=== PATIENT | female | born 1990 | race Caucasian/White ===

== ENCOUNTER → 2017-11-29 | Outpatient (CLI) | payer MEDICAID, OTHER | LOC: M RAD 13:00 | DX: D23.5 Other benign neoplasm of skin of trunk (principal) | CPT/HCPCS: 76882 ==

== ENCOUNTER → 2018-01-12 | Outpatient (REF) | payer MEDICAID, OTHER ==
[2018-01-12 20:36] LABS: CHLAMYDIA DNA AMPLIFICATION NEGATIVE (NEGATIVE); GC DNA AMPLIFICATION NEGATIVE (NEGATIVE)
== END ==
LOC: M LAB REF 17:20
DX: Z11.3 Encounter for screening for infections with a predominantly sexual mode of transmission (principal)
CPT/HCPCS: 87591

== ENCOUNTER → 2018-07-23 | Outpatient (CLI) | payer BC, OTHER ==
[~2018-07-23] MED LIST: /ESCI10TA PO; FLAG250T PO; FLAG500T PO; ZOLO100T PO; [UNRECOGNIZED DRUG - OTHER]
--- NOTE | 2018-07-23 18:57 | REP ---
LUMBAR SPINE, FIVE VIEWS: HISTORY: Back pain. There is no acute fracture or subluxation. The L4-5 intervertebral disc is decreased in height consistent with disc degeneration. An osteophyte is present on L4. The facet joints are normal in appearance. IMPRESSION:Degenerative change as described above. Electronically Signed by Randolph Patel MD 07/23/2018 06:58 P
== END ==
LOC: M RAD 17:20
PROVIDERS: ATTEND Physician Assistant Medical
DX: M51.36 Other intervertebral disc degeneration, lumbar region (principal); M25.78 Osteophyte, vertebrae; M54.5 Low back pain

== ENCOUNTER 2018-10-07 18:36 | Emergency (ER) | payer BC, OTHER ==
[~2018-10-07] VITALS: Ht 170.2 cm; Wt 74.3 kg
[~2018-10-07 18:36] MED LIST changes: -/ESCI10TA PO; +LEXA1TAB PO
[2018-10-07] MEDS ORDERED: MELO7.5T35 (18:42)
[2018-10-07] MEDS ORDERED: TIZA4TAB4 (18:42)
[2018-10-07] MEDS ORDERED: NS 500 ML IV ONE (19:45)
[2018-10-07] MEDS ORDERED: KETOROLAC 30 MG/ML VIAL (J1885) IV ONE (19:45)
[2018-10-07 20:34] LABS: BASO # 0.1 10^3/uL (0.0-0.2); BASO % 0.4 % (0.0-1.0); EOS # 0.2 10^3/uL (0.0-0.50); EOS % 1.5 % (0.0-3.0); HEMATOCRIT 42.2 % (36.0-47.0); LYMPH # 2.6 10^3/uL (1.5-6.5); LYMPH % 19.6 % (24.0-44.0); MEAN CORPUSCULAR HEMOGLOBIN 28.9 pg (27.0-33.0); MEAN CORPUSCULAR HGB CONC 33.2 g/dl (32.0-36.5); MEAN CORPUSCULAR VOLUME 87.2 fl (80.0-96.0); MONO # 1.1 10^3/uL (0.0-0.8); MONO % 8.1 % (0.0-5.0); NEUTROPHILS # 9.4 10^3/uL (1.8-7.7); NEUTROPHILS % 70.2 % (36.0-66.0); PLATELET COUNT, AUTOMATED 241 10^3/uL (150-450); RED BLOOD COUNT 4.84 10^6/uL (4.00-5.40); WHITE BLOOD COUNT 13.4 10^3/uL (4.0-10.0)
[2018-10-07] MEDS: GASTROGRAFIN SOLUTION 30ML PO SCH ×2 (20:39→21:12)
[2018-10-07 21:11] LABS: ALBUMIN 4.1 GM/DL (3.2-5.2); ALT/SGPT 14 U/L (12-78); AMYLASE 37 U/L (25-115); BILIRUBIN,TOTAL 0.3 MG/DL (0.2-1.0); BLOOD UREA NITROGEN 11 MG/DL (7-18); C REACTIVE PROTEIN QUANTITATIV 2.92 MG/DL (0.00-0.30); CARBON DIOXIDE LEVEL 24 MEQ/L (21-32); CHLORIDE LEVEL 107 MEQ/L (98-107); CREATININE FOR GFR 0.78 MG/DL (0.55-1.30); GLOMERULAR FILTRATION RATE > 60.0 (>60); GLUCOSE, FASTING 81 MG/DL (70-100); LIPASE 78 U/L (73-393); POTASSIUM SERUM 3.8 MEQ/L (3.5-5.1); SODIUM LEVEL 138 MEQ/L (136-145); TOTAL PROTEIN 7.4 GM/DL (6.4-8.2)
[2018-10-07] MEDS ORDERED: ISOVUE-370 76% 100ML VIAL (Q9967) As Ordered ONE (21:49)
--- NOTE | 2018-10-07 22:51 | REPVR ---
EXAM: CT Abdomen and Pelvis With Contrast EXAM DATE/TIME: 10/07/2018 9:51 PM CLINICAL HISTORY: 27 years old, female; Abdominal pain; Additional info: Luq, llq pain TECHNIQUE: Imaging protocol: Axial computed tomography images of the abdomen and pelvis with intravenous contrast. Coronal and sagittal reformatted images were created and reviewed. Radiation optimization: All CT scans at this facility use at least one of these dose optimization techniques: automated exposure control; mA and/or kV adjustment per patient size (includes targeted exams where dose is matched to clinical indication); or iterative reconstruction. Contrast material: ISO 370; Contrast volume: 100 ml; Contrast route: IV; COMPARISON: CT ABD PELVIS WITH CONTRAST 12/31/2014 2:55 PM FINDINGS: Lungs: No suspicious mass or airspace process in the visualized lung bases. ABDOMEN: Liver: Liver appears normal with no focal abnormality. Gallbladder and bile ducts: Gallbladder is present and shows no evidence of gallstone. Pancreas: Pancreas appears normal. No focal mass or peripancreatic inflammation. Spleen: Spleen appears homogeneous without focal mass. Adrenals: Adrenal glands are normal in appearance. Kidneys and ureters: Kidneys appear normal, with no stone, solid mass or hydronephrosis. Stomach and bowel: No evidence of small bowel obstruction. Mid-descending colon wall thickening, adjacent fat stranding and regional diverticula suggests acute diverticulitis without perforation or abscess formation at this point. Appendix: Normal caliber appendix is identified, with no adjacent inflammation. PELVIS: Bladder: Bladder appears normal. ABDOMEN and PELVIS: Intraperitoneal space: No pneumoperitoneum. Trace free fluid is present in the pelvis. No abnormal pelvic mass. Bones/joints: Bony structures show no acute fracture or destructive process. Vasculature: Main portal and splenic veins enhance normally. No aortic aneurysm. Lymph nodes: No enlarged lymph nodes. IMPRESSION: Acute diverticulitis involving the mid descending colon. No obstruction, perforation or abscess. Trace volume of pelvic free fluid may be associated. Electronically signed by: Roque Concepcion On 10/07/2018 22:51:03 PM
[2018-10-07] MEDS ORDERED: metroNIDAZOLE (FLAGYL) 500 MG TAB PO ONE (23:00)
[2018-10-07] MEDS ORDERED: CIPROFLOXACIN 500 MG TAB PO ONE (23:00)
[2018-10-07] MEDS ORDERED: MORPHINE 4 MG/ML 1ML VIAL/SYRINGE (J2270) IV ONE (23:00)
[2018-10-07 23:35] VITALS: BP 127/70
[2018-10-07] MEDS ORDERED: TYLETAB14 PO (23:42)
[2018-10-07] MEDS ORDERED: FLAG500T PO (23:42)
[2018-10-07] MEDS ORDERED: REGL10TA6 PO (23:42)
[2018-10-07] MEDS ORDERED: CIPR-249 PO (23:42)
== END 2018-10-08 00:28 | disposition home or self-care (01) ==
LOC: M ED 18:36
DX: K57.32 Diverticulitis of large intestine without perforation or abscess without bleeding (principal); F33.9 Major depressive disorder, recurrent, unspecified; F41.9 Anxiety disorder, unspecified; Z79.899 Other long term (current) drug therapy; F17.210 Nicotine dependence, cigarettes, uncomplicated
CPT/HCPCS: 74177; 80053; 81001; 82150; 83690; 84702; 85025; 86140; 96361; 96374; 96375; 99284; J1885; J2270; Q9963; Q9967

== ENCOUNTER 2018-12-10 17:03 | Emergency (ER) | payer BC, OTHER, SELFPAY ==
[~2018-12-10] VITALS: Ht 170.2 cm; Wt 72.0 kg
[~2018-12-10 17:03] MED LIST changes: +CIPR-249 PO; +MELO7.5T35; +REGL10TA6 PO; +TIZA4TAB4; +TYLETAB14 PO
[2018-12-10] MEDS ORDERED: AZITHROMYCIN 250 MG TAB PO ONE (20:00)
[2018-12-10 20:40] VITALS: BP 137/86
[2018-12-10 22:40] LABS: CHLAMYDIA DNA AMPLIFICATION NEGATIVE (NEGATIVE); GC DNA AMPLIFICATION NEGATIVE (NEGATIVE)
== END 2018-12-10 21:44 | disposition home or self-care (01) ==
LOC: M ED 17:03
DX: Z20.2 Contact with and (suspected) exposure to infections with a predominantly sexual mode of transmission (principal); Z72.0 Tobacco use; Z79.899 Other long term (current) drug therapy

== ENCOUNTER 2019-01-05 04:45 | Emergency (ER) | payer BC, SELFPAY ==
[~2019-01-05] VITALS: Ht 170.2 cm; Wt 69.1 kg
[2019-01-05 07:11] LABS: BASO # 0.1 10^3/uL (0.0-0.2); BASO % 0.6 % (0.0-1.0); EOS # 0.2 10^3/uL (0.0-0.50); EOS % 2.4 % (0.0-3.0); HEMATOCRIT 40.3 % (36.0-47.0); HEMOGLOBIN 13.6 g/dl (12.0-15.5); LYMPH # 3.2 10^3/uL (1.5-6.5); LYMPH % 36.7 % (24.0-44.0); MEAN CORPUSCULAR HEMOGLOBIN 28.9 pg (27.0-33.0); MEAN CORPUSCULAR HGB CONC 33.7 g/dl (32.0-36.5); MEAN CORPUSCULAR VOLUME 85.7 fl (80.0-96.0); MONO # 0.4 10^3/uL (0.0-0.8); MONO % 4.6 % (0.0-5.0); NEUTROPHILS # 4.8 10^3/uL (1.8-7.7); NEUTROPHILS % 55.6 % (36.0-66.0); PLATELET COUNT, AUTOMATED 263 10^3/uL (150-450); WHITE BLOOD COUNT 8.7 10^3/uL (4.0-10.0)
[2019-01-05] MEDS ORDERED: NS 1,000 ML IV ONE (07:15)
[2019-01-05 07:23] LABS: BLOOD UREA NITROGEN 8 MG/DL (7-18); CALCIUM LEVEL 8.6 MG/DL (8.5-10.1); CARBON DIOXIDE LEVEL 21 MEQ/L (21-32); CHLORIDE LEVEL 111 MEQ/L (98-107); CREATININE FOR GFR 0.71 MG/DL (0.55-1.30); ETHYL ALCOHOL (ETHANOL) 0.231 % (0.000-0.010); GLOMERULAR FILTRATION RATE > 60.0 (>60); GLUCOSE, FASTING 95 MG/DL (70-100); HCG, SERUM QUANTITATIVE < 1.0 MIU/ML; POTASSIUM SERUM 3.8 MEQ/L (3.5-5.1); SODIUM LEVEL 144 MEQ/L (136-145)
[2019-01-05 07:43] LABS: APPEARANCE, URINE CLEAR (CLEAR); BACTERIA, URINE AUTO NEGATIVE (NEGATIVE); BILIRUBIN, URINE AUTO NEGATIVE (NEGATIVE); BLOOD, URINE BLOOD NEGATIVE (NEGATIVE); COLOR, URINE STRAW (YELLOW); GLUCOSE, URINE (UA) AUTO NEGATIVE (NEGATIVE); KETONE, URINE AUTO NEGATIVE (NEGATIVE); LEUKOCYTE ESTERASE, URINE AUTO NEGATIVE (NEGATIVE); NITRITE, URINE AUTO NEGATIVE (NEGATIVE); PROTEIN, URINE AUTO NEGATIVE (NEGATIVE); RBC, URINE AUTO 1 /HPF (0-3); SPECIFIC GRAVITY URINE AUTO 1.004 (1.002-1.035); SQUAMOUS EPITHELIAL CELL UR AU 1 /HPF (0-6); UROBILINOGEN, URINE AUTO 0.2 mg/dL (0.0-2.0); WBC, URINE AUTO 0 /HPF (0-3)
[2019-01-05 08:09] LABS: AMPHETAMINES LEVEL URINE NEGATIVE (NEGATIVE); BARBITURATES URINE NEGATIVE (NEGATIVE); BENZODIAZEPINES URINE NEGATIVE (NEGATIVE); CANNABINOIDS URINE NEGATIVE (NEGATIVE); COCAINE METABOLITE URINE NEGATIVE (NEGATIVE); METHADONE URINE NEGATIVE (NEGATIVE); OPIATES URINE NEGATIVE (NEGATIVE); PHENCYCLIDINE URINE NEGATIVE (NEGATIVE)
--- NOTE | 2019-01-05 08:09 | REPVR ---
EXAM: US Pelvis Complete, Transabdominal EXAM DATE/TIME: 01/05/2019 7:44 AM CLINICAL HISTORY: 28 years old, female; Pelvic pain; Additional info: Pelvic pain, dyspareunia TECHNIQUE: Imaging protocol: Real-time transabdominal pelvic ultrasound with image documentation. Complete exam. COMPARISON: US PELVIC NON-OB COMPLETE 12/16/2014 1:06 PM FINDINGS: Uterus/cervix: The uterus measures 8.4 x 5.0 x 3.7 cm. No focal uterine mass is seen. The endometrium is normal in thickness measuring 5-6 mm. Right adnexa: The right ovary measures 3.4 x 3.1 x 2.8 cm with flow seen to the right ovary. Left adnexa: The left ovary measures 3.4 x 3.4 x 2.6 cm containing a 1.8 x 1.9 x 1.6 cm cyst. Arterial blood flow seen to the left ovary. Free fluid: There is no free pelvic fluid. Bladder: Normal. IMPRESSION: 1.8 x 1.9 x 1.6 cm left ovarian follicular cyst. No sonographic evidence of torsion. Unremarkable ultrasound of the right ovary and uterus. Electronically signed by: See Kelly On 01/05/2019 08:08:49 AM
[2019-01-05 09:29] LABS: CHLAMYDIA DNA AMPLIFICATION NEGATIVE (NEGATIVE); GC DNA AMPLIFICATION NEGATIVE (NEGATIVE)
[2019-01-05 09:33] VITALS: BP 118/56
[2019-01-07 11:58] LABS: HIV 1&2 SCREEN CENTAUR NEGATIVE (NEGATIVE)
== END 2019-01-05 09:35 | disposition home or self-care (01) ==
LOC: M ED 04:45
DX: N83.02 Follicular cyst of left ovary (principal); N94.10 Unspecified dyspareunia; F10.120 Alcohol abuse with intoxication, uncomplicated; F17.210 Nicotine dependence, cigarettes, uncomplicated
CPT/HCPCS: 76830; 76856; 80048; 80307; 81001; 84702; 85025; 86780; 87389; 87661; 93041; 93976; 96360; 99285; G0480

== ENCOUNTER 2019-01-10 03:26 | Inpatient (IN) | payer BC ==
[~2019-01-10] VITALS: Ht 170.2 cm; Wt 70.5 kg
[2019-01-10] MEDS ORDERED: NS 1,000 ML IV SCH (03:55)
[2019-01-10] MEDS ORDERED: MIDAZOLAM INJ 2 MG/2 ML VIAL (J2250) As Ordered ONE (04:14)
[2019-01-10] MEDS ORDERED: MIDAZOLAM INJ 2 MG/2 ML VIAL (J2250) IV ONE (04:15)
[2019-01-10 04:16] LABS: HEMATOCRIT 39.4 % (36.0-47.0); HEMOGLOBIN 13.2 g/dl (12.0-15.5); MEAN CORPUSCULAR HEMOGLOBIN 29.1 pg (27.0-33.0); MEAN CORPUSCULAR HGB CONC 33.5 g/dl (32.0-36.5); MEAN CORPUSCULAR VOLUME 86.8 fl (80.0-96.0); PLATELET COUNT, AUTOMATED 268 10^3/uL (150-450); RED BLOOD COUNT 4.54 10^6/uL (4.00-5.40); WHITE BLOOD COUNT 9.1 10^3/uL (4.0-10.0)
[2019-01-10 04:40] LABS: HCG, SERUM QUALITATIVE NEGATIVE (NEGATIVE)
[2019-01-10 04:50] LABS: ACETAMINOPHEN LEVEL < 2.0 UG/ML (10.0-30.0); ALBUMIN 3.8 GM/DL (3.2-5.2); ALT/SGPT 20 U/L (12-78); BILIRUBIN,DIRECT < 0.1 MG/DL (0.0-0.2); BILIRUBIN,TOTAL 0.1 MG/DL (0.2-1.0); BLOOD UREA NITROGEN 11 MG/DL (7-18); CALCIUM LEVEL 8.4 MG/DL (8.5-10.1); CARBON DIOXIDE LEVEL 21 MEQ/L (21-32); CHLORIDE LEVEL 112 MEQ/L (98-107); CREATININE FOR GFR 0.66 MG/DL (0.55-1.30); ETHYL ALCOHOL (ETHANOL) 0.237 % (0.000-0.010); GLOMERULAR FILTRATION RATE > 60.0 (>60); GLUCOSE, FASTING 87 MG/DL (70-100); SALICYLATE LEVEL < 1.7 MG/DL (5.0-30.0); SODIUM LEVEL 144 MEQ/L (136-145)
[2019-01-10 05:56] LABS: AMPHETAMINES LEVEL URINE NEGATIVE (NEGATIVE); BARBITURATES URINE NEGATIVE (NEGATIVE); BENZODIAZEPINES URINE POSITIVE (NEGATIVE); CANNABINOIDS URINE NEGATIVE (NEGATIVE); COCAINE METABOLITE URINE NEGATIVE (NEGATIVE); METHADONE URINE NEGATIVE (NEGATIVE); OPIATES URINE NEGATIVE (NEGATIVE); PHENCYCLIDINE URINE NEGATIVE (NEGATIVE)
--- NOTE | 2019-01-10 07:25 | ECGEPIP ---
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
[2019-01-10] MEDS ORDERED: TIZA4TAB4 PO (10:37)
[2019-01-10] MEDS ORDERED: LORazepam 2 MG TAB PO PRN (12:45)
[2019-01-10 13:36] VITALS: BP 114/75
[2019-01-10 14:19] VITALS: BP 114/75
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
[2019-01-10] MEDS: FOLIC ACID 1 MG TAB PO SCH (17:19)
[2019-01-10] MEDS: MULTIVITAMINS/MINERALS THERAP 1 TAB PO SCH (17:19)
[2019-01-10] MEDS: THIAMINE 100 MG TAB PO SCH ×2 (17:20→21:00)
[2019-01-10 22:25] VITALS: BP 114/75
[2019-01-11 06:42] VITALS: BP 96/54
[2019-01-11 06:57] VITALS: BP 96/54
[2019-01-11] MEDS: MULTIVITAMINS/MINERALS THERAP 1 TAB PO SCH (09:00)
[2019-01-11] MEDS: THIAMINE 100 MG TAB PO SCH (09:00)
[2019-01-11] MEDS: FOLIC ACID 1 MG TAB PO SCH (09:00)
--- NOTE | 2019-01-11 10:04 | MHIPNPDOC ---
[facility] Progress Note Vital Signs Vital Signs Date Time Temp Pulse Resp B/P (MAP) Pulse Ox O2 Delivery O2 Flow Rate FiO2 01/11/19 06:57 73 96/54 01/11/19 06:42 99.3 14 01/10/19 13:36 97 01/10/19 13:08 Room Air Laboratory Data 24H Labs Laboratory Tests 2 01/10/19 13:05: Ethyl Alcohol Level 0.031H Current Medications Current Medications Medications (Trade) Dose Ordered Sig/Art Route PRN Reason Start Time Stop Time Status Last Admin Dose Admin Folic Acid (Folic Acid) 1 mg DAILY PO 01/10/19 09:00 Home Med (Med Rec Complete!) ASDIRECTED XX 01/10/19 10:45 01/10/19 10:45 DC Lorazepam (Ativan) 2 mg ASDIRECTED PRN PO SEE PROTOCOL 01/10/19 12:45 Multivitamins (Theragram-M) 1 tab DAILY PO 01/10/19 09:00 Sodium Chloride 1,000 ml @ 150 mls/hr Q6H40M IV 01/10/19 03:55 01/10/19 19:29 DC 01/10/19 03:55 Thiamine HCl (Thiamine HCl) 100 mg BID PO 01/10/19 14:00 01/12/19 21:01 Allergies Coded Allergies: No Known Allergies (Unverified , 10/07/18) EARL SNOW DO Jan 11, 2019 10:04
--- NOTE | 2019-01-11 10:49 | HPEPDOC ---
General Date of Admission Jan 10, 2019 at 12:31 Date of Service: Jan 11, 2019 Attending Physician: SAURAV FELIZ MD Chief Complaint The patient is a 28-year-old female admitted with a reason for visit of Suicidal Thought. History of Present Illness Sandy Jimenez is a 8-year-old female, primary medical history significant for alcohol abuse, admitted to inpatient psychiatric units for evaluation. Patient had taken muscle relaxers, benzodiazepine, and significant amount of alcohol. She reportedly had been found facedown in her top after drinking a large amount of alcohol. There was concern for suicidal ideation or attempt. On assessment, she denies any physical symptoms, denies headache, chest pain, shortness of breath, chills, weakness, fever. Home Medications Scheduled PRN Tizanidine HCl (Tizanidine HCl) 4 Mg Tablet, 4 MG PO DAILY PRN for MUSCLE SPASMS, (Reported) Allergies Coded Allergies: No Known Allergies (Unverified , 10/07/18) Past Medical History Medical History Alcohol abuse Polysubstance abuse-benzos Surgical History Right foot bunion removal [place] tooth removal Cervical tear repair D&C Family History Sibling: Rapid heart rate Social History Smokes half a pack of cigarettes a day, heavy alcohol intake, denies polysubstance abuse A-FIB/CHADSVASC A-FIB History Current/History of A-Fib/PAF?: No Current PO Anticoag Therapy: No Review of Systems Other systems A pertinent 10 point review of systems was completed, negative except as stated in the history of presenting illness Physical Examination Other physical findings GENERAL: NAD SKIN : Warm, dry intact HEENT: Atraumatic, normocephalic, PERRL, moist mucous membrane CARDIOVASCULAR: Regular rate and rhythm, S1S2, no JVD, no edema, distal pulses + palpable RESP: CTAB, no accessory muscle use noted ABDOMEN: BS+ non distended non tender MS: no joint deformities NEURO: Alert and oriented x 3, CN2-12 grossly intact PSYCH: flat affect. Vital Signs Vital Signs Date Time Temp Pulse Resp B/P (MAP) Pulse Ox O2 Delivery O2 Flow Rate FiO2 01/11/19 06:57 73 96/54 01/11/19 06:42 99.3 14 01/10/19 13:36 97 01/10/19 13:08 Room Air Laboratory Data Labs 24H Laboratory Tests 2 01/10/19 13:05: Ethyl Alcohol Level 0.031H Assessment/Plan Suicidal ideation Depression Polysubstance abuse (with benzodiazepines with alcohol) PLAN Patient currently has no underlying medical comorbidities requiring medical follow-up and management. Acute psychiatric issues being managed by primary team Reconsult medical team as needed Plan / VTE VTE Prophylaxis Ordered?: No VTE Exclusion Mechanical Proph: Low Risk for VTE BECKA MARADIAGA SELF RISING FLOUR MIXER Jan 11, 2019 10:48
--- NOTE | 2019-01-11 16:13 | MHDSPDOC ---
[facility] Discharge Summary Discharge Summary DATE OF ADMISSION: Jan 10, 2019 at 12:31 DATE OF DISCHARGE: 01/11/19 Date of Service: 01/11/2019 Diagnoses Unspecified depressive disorder. Highly likely to be substance-induced. Alcohol use disorder, severe. History of Present Illness The patient a 28-year-old woman presented to [facility] brought in by police after being found face-down in her bathtub after drinking a significant amount of alcohol and reportedly writing suicide notes. She had also taken some muscle relaxants and had been reportedly making suicidal statements to family. The patient was admitted to the unit and subsequently interviewed. Consultants Involved Hospitalist/PCP screening Treatment and Progress On The Unit The patient was admitted into the unit and subsequently evaluated. She declined medications as she reports she wanted to consider with her outpatient therapist. She was observed for 24 hours and demonstrated no concerning sign or symptoms and denied suicidality. Her report was that the events that had transpired prior to admission were the result of extreme intoxication and not reflective of her general outpatient functioning and had denied any psychiatric symptoms preceding the event in question. She was initially extended for 48-hour hold. However, collateral information gained from her sister who was proximal to the event clarified this situation as likely substance-induced as well as intoxication and that her sister reported she had no concerns about suicidality and that the patient could do well as an outpatient. After further discussion with the patient and interviewing, the patient was deemed ready for discharge and did not need involuntary criteria for further extension of her admission due to the lack of suicidality and the increasing likelihood of her situation being an entirely alcohol-related/mediated for her presentation. She elected against a further voluntary admission and thus was discharged in [facility] home. Discharge Assessment The patient a 28-year-old woman with a history of severe alcohol problems presents after being severely intoxicated, making various statements and writing down various suicide notes while heavily intoxicated. Collateral information and 24 hours of observation appear to confirm that the patient's account of situations as her affect rapidly returned normal after intoxication resolved. Mental Status Examination General: Well dressed with good hygiene Speech: Spontaneous and fluid Thought processes: Linear and logical MSK: Smooth and coordinated gait, no signs of tremors or involuntary orofacial movements Thought content: Future orientated Abstract reasoning, and computation: Intact Description of associations: Intact Description of abnormal or psychotic thoughts: Denies any suicidal or homicidal ideation. Denies any auditory or visual hallucinations. Does not appear to be responding to internal stimuli. Does not appear to be endorsing any bizarre or paranoid ideation. Judgment: fair Insight: fair Orientation: Alert and orientated 3 Cognition: Grossly normal Recent and remote memory: Intact Attention span and concentration: Intact Fund of knowledge: Adequate Mood: "okay" Affect: Euthymic with a full range Follow Up The social work team worked during the predischarge meeting in order to evaluate for further issues of lethality address them fully before discharge. They worked on safety planning with the patient's family members in order to ensure that the patient will have a safe and effective discharge. Discussed with patient to follow up with ER if she experienced any alcohol withdrawal symptoms such as tremors or shakiness. Time Spent The amount of time spent in the coordination of care for this patient was approximately 30 minutes. Monday Vital Signs/I&Os Vital Signs Date Time Temp Pulse Resp B/P (MAP) Pulse Ox O2 Delivery O2 Flow Rate FiO2 01/11/19 06:57 73 96/54 01/11/19 06:42 99.3 14 01/10/19 13:36 97 01/10/19 13:08 Room Air I&O- Last 24 Hours up to 6 AM 01/11/19 06:00 Intake Total 1000 ml Balance 1000 ml Medications No Active Prescriptions or Reported Meds Allergies Coded Allergies: No Known Allergies (Unverified , 10/07/18) EARL SNOW DO Jan 11, 2019 16:12
== END 2019-01-11 13:30 | disposition home or self-care (01) | DRG 775 ==
LOC: M ED 03:26 → M ED INP 12:31 → M PSY 13:30
PROVIDERS: ADMIT Psychiatry & Neurology Addiction Medicine; ATTEND Psychiatry & Neurology Addiction Medicine
DX: F10.94 Alcohol use, unspecified with alcohol-induced mood disorder (principal); R45.851 Suicidal ideations

== ENCOUNTER 2019-04-13 07:40 | Emergency (ER) | payer BC, SELFPAY ==
[~2019-04-13] VITALS: Ht 170.2 cm; Wt 67.9 kg
[2019-04-13 07:40] VITALS: BP 140/87
[~2019-04-13 07:40] MED LIST changes: +TIZA4TAB4 PO
[2019-04-13] MEDS ORDERED: IBUPROFEN 800 MG TAB PO ONE (08:15)
[2019-04-13] MEDS ORDERED: AUGMENTIN 875 MG TAB PO ONE (08:15)
[2019-04-13] MEDS ORDERED: IBUP80TA PO (08:21)
[2019-04-13] MEDS ORDERED: AUGM875T28 PO (08:21)
== END 2019-04-13 08:32 | disposition home or self-care (01) ==
LOC: M ED 07:40
DX: J02.9 Acute pharyngitis, unspecified (principal)

== ENCOUNTER 2019-04-22 23:44 | Emergency (ER) | payer BC ==
[~2019-04-22] VITALS: Ht 170.2 cm; Wt 68.2 kg
[~2019-04-22 23:44] MED LIST changes: +AUGM875T28 PO; +IBUP80TA PO
[2019-04-23] MEDS ORDERED: NS 1,000 ML IV ONE (01:15)
[2019-04-23 01:39] LABS: BASO % 0.3 % (0.0-1.0); EOS # 0.6 10^3/uL (0.0-0.5); EOS % 6.9 % (0.0-3.0); HEMOGLOBIN 13.5 g/dl (12.0-15.5); LYMPH # 2.5 10^3/uL (1.5-5.0); LYMPH % 28.2 % (24.0-44.0); MEAN CORPUSCULAR HGB CONC 32.1 g/dl (32.0-36.5); MONO # 0.5 10^3/uL (0.0-0.8); MONO % 5.1 % (0.0-5.0); NEUTROPHILS # 5.3 10^3/uL (1.5-8.5); NEUTROPHILS % 59.2 % (36.0-66.0); PLATELET COUNT, AUTOMATED 236 10^3/uL (150-450); RED BLOOD COUNT 4.83 10^6/uL (4.00-5.40)
[2019-04-23 02:08] LABS: ALBUMIN 3.6 GM/DL (3.2-5.2); ALT/SGPT 17 U/L (12-78); BILIRUBIN,DIRECT < 0.1 MG/DL (0.0-0.2); BILIRUBIN,TOTAL 0.3 MG/DL (0.2-1.0); BLOOD UREA NITROGEN 18 MG/DL (7-18); CALCIUM LEVEL 8.9 MG/DL (8.5-10.1); CARBON DIOXIDE LEVEL 32 MEQ/L (21-32); CHLORIDE LEVEL 103 MEQ/L (98-107); CREATININE FOR GFR 0.69 MG/DL (0.55-1.30); GLOMERULAR FILTRATION RATE > 60.0 (>60); GLUCOSE, FASTING 89 MG/DL (70-100); LIPASE 55 U/L (73-393); POTASSIUM SERUM 3.6 MEQ/L (3.5-5.1); SODIUM LEVEL 140 MEQ/L (136-145); TOTAL PROTEIN 7.1 GM/DL (6.4-8.2)
[2019-04-23 04:01] LABS: HCG, SERUM QUANTITATIVE 4528 MIU/ML
[2019-04-23 05:13] LABS: CHLAMYDIA DNA AMPLIFICATION POSITIVE (NEGATIVE); GC DNA AMPLIFICATION NEGATIVE (NEGATIVE)
--- NOTE | 2019-04-23 05:13 | REPVR ---
PROCEDURE INFORMATION: Exam: US Duplex Artery and Vein of the Abdominal and/or Reproductive Organs. Complete Ovaries Exam date and time: 04/23/2019 4:22 AM Clinical history: 28 years old, female; complicated by abdominal or pelvic pain; Generalized abdominal pain; First trimester; Gestational age or lmp: Lmp 03/19/19; ; Additional info: Preg abd pain eval for iup TECHNIQUE: Imaging protocol: Real-time duplex ultrasound scan of the arterial and venous flow with color Doppler flow and spectral waveform analysis with image documentation. Complete duplex exam focused on the ovaries. Duplex exam was added to evaluate for torsion and other vascular conditions. COMPARISON: No relevant prior studies available. FINDINGS: Right adnexa: The arterial and venous color Doppler flow and spectral waveforms within the right ovary are within normal limits. No right ovarian torsion. Left adnexa: The arterial and venous color Doppler flow and spectral waveforms within the left ovary are within normal limits. No left ovarian torsion. IMPRESSION: Normal ovarian arterial and venous vascular flow. No evidence for ovarian torsion. PROCEDURE INFORMATION: Exam: US First Trimester, Transabdominal and US , Transvaginal Exam date and time: 04/23/2019 4:22 AM Clinical history: 28 years old, female; complicated by abdominal or pelvic pain; Generalized abdominal pain; First trimester; Gestational age or lmp: Lmp 03/19/19; ; Additional info: Preg abd pain eval for iup TECHNIQUE: Imaging protocol: Real-time transabdominal obstetrical ultrasound of the maternal pelvis and a first trimester , less than 14 weeks 0 days, with image documentation. Transvaginal imaging was used for better evaluation of the fetus and adnexa. COMPARISON: No relevant prior studies available. FINDINGS: Last menstrual period: 03/19/2019 Beta HC,528 mIU/mL GESTATION: Gestation: No pole is identified. There is a single intrauterine gestational sac and a 2 mm in diameter yolk sac. Heart rate: No cardiac activity is visualized. Placenta: No placenta is visualized. Amniotic fluid: Amniotic and chorionic fluid are normal for gestational age. BIOMETRY: Estimated gestational age by US: 5 weeks 3 days Estimated gestational age by LMP: 5 weeks 0 days Mean sac diameter: 0.74 cm Estimated due date by US: 12/21/2019 Estimated due date by LMP: 12/24/2019 MATERNAL: Uterus: The anteverted uterus measures 8.1 cm x 4.1 cm x 6.2 cm. No myometrial mass is identified. Cervix: Unremarkable. Right adnexa: The right ovary is normal in appearance. No right ovarian cyst or right adnexal mass is noted. The right ovary measures 3.2 cm x 2.5 cm x 1.9. Left adnexa: The left ovary is normal in appearance. No left ovarian cyst or left adnexal mass is noted. The left ovary measures 3.1 cm x 2.5 cm x 2.8 cm. Intraperitoneal: No free fluid is visualized in the pelvis from images obtained. IMPRESSION: Single intrauterine gestational sac with a mean sac diameter of 0.74 cm, corresponding to a gestational age of 5 weeks 3 days and estimated due date on 12/21/2019, but no embryo is visualized. These findings may indicate a failed first trimester or normal early . A followup ultrasound is recommended after 11 days to reassess for an embryo and serial beta hCG levels are also suggested. Electronically signed by: Enoch Cisneros On 04/23/2019 05:13:11 AM
[2019-04-23] MEDS ORDERED: AZITHROMYCIN 250 MG TAB PO ONE (05:45)
[2019-04-23] MEDS ORDERED: PROM25TA12 PO (06:17)
[2019-04-23 06:35] VITALS: BP 109/58
== END 2019-04-23 06:46 | disposition home or self-care (01) ==
LOC: M ED 23:44
DX: O20.0 Threatened abortion (principal); O21.9 Vomiting of pregnancy, unspecified; A74.9 Chlamydial infection, unspecified; M46.96 Unspecified inflammatory spondylopathy, lumbar region; Z3A.08 8 weeks gestation of pregnancy; Z87.891 Personal history of nicotine dependence

== ENCOUNTER → 2019-05-30 | Outpatient (CLI) | payer BC ==
[~2019-05-30] MED LIST changes: +PROM25TA12 PO
[2019-05-30 14:16] LABS: BASO % 0.4 % (0.0-1.0); EOS # 0.3 10^3/uL (0.0-0.5); EOS % 3.9 % (0.0-3.0); HEMATOCRIT 40.6 % (36.0-47.0); HEMOGLOBIN 13.3 g/dl (12.0-15.5); LYMPH # 2.2 10^3/uL (1.5-5.0); LYMPH % 30.8 % (24.0-44.0); MEAN CORPUSCULAR HEMOGLOBIN 28.6 pg (27.0-33.0); MEAN CORPUSCULAR HGB CONC 32.8 g/dl (32.0-36.5); MEAN CORPUSCULAR VOLUME 87.3 fl (80.0-96.0); MONO # 0.4 10^3/uL (0.0-0.8); MONO % 5.7 % (0.0-5.0); NEUTROPHILS # 4.3 10^3/uL (1.5-8.5); NEUTROPHILS % 59.1 % (36.0-66.0); PLATELET COUNT, AUTOMATED 232 10^3/uL (150-450); RED BLOOD COUNT 4.65 10^6/uL (4.00-5.40); WHITE BLOOD COUNT 7.2 10^3/uL (4.0-10.0)
[2019-05-30 15:38] LABS: CHLAMYDIA DNA AMPLIFICATION NEGATIVE (NEGATIVE); GC DNA AMPLIFICATION NEGATIVE (NEGATIVE)
[2019-05-31 11:40] LABS: RUBELLA IgG QUALITATIVE IMMUNE (IMMUNE)
[2019-05-31 12:00] LABS: HEPATITIS C VIRUS ABY INDEX 0.2 INDEX (<0.8); HIV 1&2 SCREEN CENTAUR NEGATIVE (NEGATIVE)
== END ==
LOC: M PLALAB 10:43
PROVIDERS: ATTEND Advanced Practice Midwife
DX: Z34.01 Encounter for supervision of normal first pregnancy, first trimester (principal)

== ENCOUNTER → 2019-06-12 | Outpatient (REF) | payer BC ==
[2019-06-12 15:03] LABS: CHLAMYDIA DNA AMPLIFICATION NEGATIVE (NEGATIVE); GC DNA AMPLIFICATION NEGATIVE (NEGATIVE)
== END ==
LOC: M LAB REF 12:30
PROVIDERS: ATTEND Physician Assistant
DX: R10.30 Lower abdominal pain, unspecified (principal)

== ENCOUNTER → 2019-06-17 | Outpatient (REF) | LOC: M LAB 11:47 | PROVIDERS: ATTEND Nurse Practitioner Adult Health | DX: Z02.1 Encounter for pre-employment examination (principal) ==

== ENCOUNTER → 2019-07-31 | Outpatient (REF) | payer BC | LOC: M SFHCWAGY 12:51 | PROVIDERS: ATTEND Advanced Practice Midwife | DX: Z34.82 Encounter for supervision of other normal pregnancy, second trimester (principal) ==

== ENCOUNTER → 2019-09-02 | Outpatient (CLI) | payer OTHER ==
--- NOTE | 2019-09-02 16:21 | REP ---
OB ULTRASOUND Real-time sonographic evaluation of the gravid uterus performed. There is a single living intrauterine gestation. Estimated gestational age is 23 weeks 6 days, EDC 12/25/2019. Today's measurements indicate appropriate growth. BPD 59 mm - 24 weeks 2 days, 61st percentile HC 217 mm = 23 weeks 5 days, 50th percentile AC 192 mm = 23 weeks 6 days, 54th percentile FL 44 mm = 24 weeks 2 days, 62nd percentile HC/AC ratio 1.13, within normal range. Estimated weight 655 grams, 54th percentile. Cervix is closed and measures 4.5 cm in length. heart rate 146 beats per minute. SEEN/GROSSLY UNREMARKABLE Lateral ventricles yes Posterior fossa yes Upper lip no Four-chamber heart yes LVOT yes RVOT yes Stomach yes Cord insertion yes Three vessel cord yes Kidneys yes Bladder yes Spine yes position: Breech Placenta: Anterior and grade 0 with no previa or abruption. Amniotic fluid: Within normal limits.
== END ==
LOC: M WHC 12:14
PROVIDERS: ATTEND Advanced Practice Midwife
DX: Z34.82 Encounter for supervision of other normal pregnancy, second trimester (principal); Z3A.23 23 weeks gestation of pregnancy

== ENCOUNTER → 2019-09-13 | Outpatient (REF) | payer OTHER ==
[2019-09-13 17:46] LABS: HEMATOCRIT 36.3 % (36.0-47.0); HEMOGLOBIN 12.2 g/dl (12.0-15.5); MEAN CORPUSCULAR HGB CONC 33.6 g/dl (32.0-36.5); MEAN CORPUSCULAR VOLUME 89.4 fl (80.0-96.0); PLATELET COUNT, AUTOMATED 224 10^3/uL (150-450); RED BLOOD COUNT 4.06 10^6/uL (4.00-5.40); WHITE BLOOD COUNT 10.4 10^3/uL (4.0-10.0)
== END ==
LOC: M PLALAB 14:45
PROVIDERS: ATTEND Advanced Practice Midwife
DX: Z34.82 Encounter for supervision of other normal pregnancy, second trimester (principal)

== ENCOUNTER → 2019-11-07 | Outpatient (CLI) | payer OTHER ==
--- NOTE | 2019-11-08 13:13 | ECHO ---
OUTPATIENT ECHOCARDIOGRAPHIC REPORT DATE OF PROCEDURE: 11/07/2019 DATE OF : 1990 AGE: 29 GENDER: Female HEIGHT: 67 inches WEIGHT: 191 pounds BODY SURFACE AREA: 1.98 m2 OUTPATIENT: REFERRING PHYSICIAN: Dr. Brayan Avery INDICATION: Palpitations. MEASUREMENTS: 2-D Measurements: RV: 2.9 cm LV: 3.9 cm Septum: 1.0 cm Posterior wall: 1.0 cm Aortic root: 2.8 cm LA: 2.9 cm LVEF: 75% Doppler Measurements: AV: 1.5 m/sec LVOT: 1.0 m/sec LVOT diameter: 1.8 cm MV - E: 65, A: 57, EA ratio: 1.1 Early mitral deceleration time: 134 ms E prime medial: 10.4, A prime medial: 9, E prime lateral: 16.9 PV: 1.0 m/sec Pulmonary artery acceleration time: 120 ms RVSP: 21-26 mmHg IVC: 1.0 cm COMMENTS: Normal sinus rhythm without intraventricular conduction disturbance. M-mode and two-dimensional echocardiography was performed with pulsed, continuous wave, color flow and tissue Doppler studies. Normal left ventricular size, wall thickness and hyperkinetic wall motion. Normal left atrial size and Doppler assessment of LV diastolic function and estimated mean left atrial pressure. Normal right heart chamber sizes and motion and estimated pulmonary arterial pressure. Normal IVC size and collapse against an elevated central venous pressure. Normal aortic root size. Normal-appearing and functioning valvular structures. No apparent intracardiac mass or pericardial effusion.
== END ==
LOC: M CARPUL 10:30
PROVIDERS: ATTEND Family Medicine Addiction Medicine
DX: R00.2 Palpitations (principal)

== ENCOUNTER → 2019-11-28 | Outpatient (REF) | payer OTHER ==
[2019-11-28 20:42] LABS: CHLAMYDIA DNA AMPLIFICATION NEGATIVE (NEGATIVE); GC DNA AMPLIFICATION NEGATIVE (NEGATIVE)
== END ==
LOC: M SFHCWAGY 16:47
PROVIDERS: ATTEND Specialist
DX: Z20.2 Contact with and (suspected) exposure to infections with a predominantly sexual mode of transmission (principal)

== ENCOUNTER → 2019-12-03 | Outpatient (REF) | payer OTHER | LOC: M SFHCWAGY 16:37 | PROVIDERS: ATTEND Advanced Practice Midwife | DX: Z34.83 Encounter for supervision of other normal pregnancy, third trimester (principal); Z3A.37 37 weeks gestation of pregnancy ==

== ENCOUNTER 2019-12-29 04:54 | Inpatient (IN) | payer OTHER ==
[2019-12-29] MEDS ORDERED: PROMETHAZINE INJ 25 MG/ML VIAL (J2550) As Ordered ONE (06:07)
[2019-12-29] MEDS ORDERED: PROMETHAZINE INJ 25 MG/ML VIAL (J2550) ONE (06:07)
[2019-12-29] MEDS ORDERED: BUTORPHANOL 2 MG/ML INJ (J0595) ONE (06:07)
[2019-12-29] MEDS ORDERED: BUTORPHANOL 2 MG/ML INJ (J0595) As Ordered ONE (06:08)
[2019-12-29] MEDS ORDERED: FENTANYL 2MCG/ML ROPIVACAINE 0.2% IN 0.9% NACL 100ML IVBAG ONE ×2 (10:06→20:08)
[2019-12-29] MEDS ORDERED: FENTANYL 2MCG/ML ROPIVACAINE 0.2% IN 0.9% NACL 100ML IVBAG As Ordered ONE ×2 (10:07→20:08)
[2019-12-29] MEDS ORDERED: OXYTOCIN 30 UNITS IN 0.9% NaCl 500ML IV BAG (J2590) As Ordered ONE (12:54)
[2019-12-29] MEDS ORDERED: OXYTOCIN 30 UNITS IN 0.9% NaCl 500ML IV BAG (J2590) ONE (12:54)
[2019-12-29] MEDS ORDERED: ceFAZolin 2 GM/D5W 50 ML IV BAG (J0690 PER 500MG) As Ordered ONE (23:42)
[2019-12-29] MEDS ORDERED: AZITHROMYCIN INJ 500MG VIAL (J0456 PER 500MG) ONE (23:42)
[2019-12-29] MEDS ORDERED: BICITRA 30ML SOLN UDC ONE (23:42)
[2019-12-29] MEDS ORDERED: ceFAZolin 2 GM/D5W 50 ML IV BAG (J0690 PER 500MG) ONE (23:42)
[2019-12-29] MEDS ORDERED: BICITRA 30ML SOLN UDC As Ordered ONE (23:43)
[2019-12-29] MEDS ORDERED: ONDANSETRON 4MG/2ML VIAL ONE (23:44)
[2019-12-29] MEDS ORDERED: LIDOCAINE PRES-FREE 2% 10ML AMP ONE (23:44)
[2019-12-29] MEDS ORDERED: OXYTOCIN INJ 10 UNITS/ML VIAL (J2590) ONE (23:44)
[2019-12-29] MEDS ORDERED: AZITHROMYCIN INJ 500MG VIAL (J0456 PER 500MG) As Ordered ONE (23:45)
[2019-12-30] MEDS ORDERED: MORPHINE PRES-FREE INJ 10 MG/10 ML VIAL (J2274) ONE (00:49)
[2019-12-30] MEDS ORDERED: fentaNYL 100 MCG/2 ML INJECTION (J3010) ONE (00:49)
[2019-12-30] MEDS ORDERED: KETOROLAC 60MG 2ML VIAL ONE (00:49)
[2019-12-30] MEDS ORDERED: OXYTOCIN 30 UNITS IN 0.9% NaCl 500ML IV BAG (J2590) As Ordered ONE (01:47)
[2019-12-30] MEDS ORDERED: PERCOCET 5MG/325MG TAB As Ordered ONE ×2 (01:59→04:19)
[2019-12-30] MEDS ORDERED: PERCOCET 5MG/325MG TAB ONE ×2 (04:19→17:38)
[2019-12-30] MEDS ORDERED: KETOROLAC 30 MG/ML 1ML VIAL ONE ×3 (07:22→19:36)
[2019-12-30] MEDS ORDERED: KETOROLAC 30 MG/ML 1ML VIAL As Ordered ONE ×2 (07:22→12:59)
[2019-12-31] MEDS ORDERED: PERCOCET 5MG/325MG TAB ONE ×4 (01:35→08:05)
[2019-12-31] MEDS ORDERED: DOCUSATE SODIUM 100 MG CAP ONE (01:35)
[2019-12-31] MEDS ORDERED: IBUPROFEN 800 MG TAB ONE ×3 (04:11→08:05)
[2019-12-31] MEDS ORDERED: PERCOCET 5MG/325MG TAB As Ordered ONE ×3 (08:05→18:02)
[2019-12-31] MEDS ORDERED: IBUPROFEN 800 MG TAB As Ordered ONE ×2 (11:22→21:01)
[2019-12-31] MEDS ORDERED: DOCUSATE SODIUM 100 MG CAP As Ordered ONE (14:29)
[2020-01-01] MEDS ORDERED: PERCOCET 5MG/325MG TAB As Ordered ONE ×2 (01:10→08:50)
[2020-01-01] MEDS ORDERED: PERCOCET 5MG/325MG TAB ONE ×2 (01:10→08:50)
[2020-01-01] MEDS ORDERED: IBUPROFEN 800 MG TAB ONE (05:04)
[2020-01-01] MEDS ORDERED: IBUPROFEN 800 MG TAB As Ordered ONE (05:04)
[2020-02-05 12:36] LABS: MEAN CORPUSCULAR HEMOGLOBIN 24.3 pg (27.0-33.0); MEAN CORPUSCULAR HGB CONC 31.4 g/dl (32.0-36.5); MEAN CORPUSCULAR VOLUME 77.4 fl (80.0-96.0); PLATELET COUNT, AUTOMATED 268 10^3/uL (150-450); RED BLOOD COUNT 4.52 10^6/uL (4.00-5.40); WHITE BLOOD COUNT 12.2 10^3/uL (4.0-10.0)
[2020-02-06 06:53] LABS: BASO % 0.1 % (0.0-1.0); EOS % 0.3 % (0.0-3.0); HEMATOCRIT 28.6 % (36.0-47.0); HEMOGLOBIN 8.8 g/dl (12.0-15.5); LYMPH # 2.2 10^3/uL (1.5-5.0); LYMPH % 14.8 % (24.0-44.0); MEAN CORPUSCULAR HGB CONC 30.8 g/dl (32.0-36.5); MEAN CORPUSCULAR VOLUME 77.9 fl (80.0-96.0); MONO # 1.4 10^3/uL (0.0-0.8); MONO % 9.4 % (0.0-5.0); NEUTROPHILS # 10.9 10^3/uL (1.5-8.5); NEUTROPHILS % 74.6 % (36.0-66.0); PLATELET COUNT, AUTOMATED 196 10^3/uL (150-450); RED BLOOD COUNT 3.67 10^6/uL (4.00-5.40); WHITE BLOOD COUNT 14.6 10^3/uL (4.0-10.0)
== END 2020-01-01 10:45 | disposition home or self-care (01) | DRG 540 ==
LOC: M LDI 04:54
PROVIDERS: ADMIT Obstetrics & Gynecology; ATTEND Obstetrics & Gynecology
PROC: 10D00Z1 Extraction of Products of Conception, Low, Open Approach (ICD-10-PCS; principal; 2019-12-30)
DX: O62.0 Primary inadequate contractions (principal); Z37.0 Single live birth; Z3A.38 38 weeks gestation of pregnancy

== ENCOUNTER 2020-02-10 01:43 | Emergency (ER) | payer OTHER ==
[~2020-02-10] VITALS: Ht 170.2 cm; Wt 84.0 kg
[2020-02-10 04:07] VITALS: BP 110/71
== END 2020-02-10 04:08 | disposition home or self-care (01) ==
LOC: M ED 01:43
DX: J06.9 Acute upper respiratory infection, unspecified (principal); J45.909 Unspecified asthma, uncomplicated; F41.9 Anxiety disorder, unspecified; Z87.891 Personal history of nicotine dependence

== ENCOUNTER → 2020-02-28 | Outpatient (REF) | payer OTHER ==
[2020-02-28 17:35] LABS: APPEARANCE, URINE CLEAR (CLEAR); BACTERIA, URINE AUTO 1+ (NEGATIVE); BILIRUBIN, URINE AUTO NEGATIVE (NEGATIVE); BLOOD, URINE BLOOD NEGATIVE (NEGATIVE); COLOR, URINE STRAW (YELLOW); GLUCOSE, URINE (UA) AUTO NEGATIVE (NEGATIVE); KETONE, URINE AUTO NEGATIVE (NEGATIVE); LEUKOCYTE ESTERASE, URINE AUTO NEGATIVE (NEGATIVE); NITRITE, URINE AUTO NEGATIVE (NEGATIVE); PROTEIN, URINE AUTO NEGATIVE (NEGATIVE); RBC, URINE AUTO 0 /HPF (0-3); SQUAMOUS EPITHELIAL CELL UR AU 4 /HPF (0-6); UROBILINOGEN, URINE AUTO 0.2 mg/dL (0.0-2.0); WBC, URINE AUTO 0 /HPF (0-3)
== END ==
LOC: M LAB REF 17:02
PROVIDERS: ATTEND Physician Assistant
DX: N39.0 Urinary tract infection, site not specified (principal)

== ENCOUNTER → 2023-02-03 | Outpatient (REF) | payer OTHER ==
[~2023-02-03] MED LIST changes: +TIZA10TA; +TIZA10TA PO; -TIZA4TAB4; -TIZA4TAB4 PO
== END ==
LOC: M LAB REF 21:20
PROVIDERS: ATTEND Physician Assistant
DX: J02.9 Acute pharyngitis, unspecified (principal)

== ENCOUNTER → 2023-02-09 | Outpatient (REF) | payer OTHER | LOC: M SFHCWAGY 17:37 | PROVIDERS: ATTEND Obstetrics & Gynecology | DX: Z12.4 Encounter for screening for malignant neoplasm of cervix (principal) ==

== ENCOUNTER 2023-04-10 09:52 | Emergency (ER) | payer OTHER ==
[~2023-04-10] VITALS: Ht 170.2 cm; Wt 81.4 kg
[2023-04-10 10:44] LABS: APPEARANCE, URINE HAZY (CLEAR); BACTERIA, URINE AUTO NEGATIVE (NEGATIVE); BILIRUBIN, URINE AUTO NEGATIVE (NEGATIVE); BLOOD, URINE BLOOD NEGATIVE (NEGATIVE); COLOR, URINE YELLOW (YELLOW); GLUCOSE, URINE (UA) AUTO NEGATIVE (NEGATIVE); KETONE, URINE AUTO NEGATIVE (NEGATIVE); LEUKOCYTE ESTERASE, URINE AUTO NEGATIVE (NEGATIVE); NITRITE, URINE AUTO NEGATIVE (NEGATIVE); PROTEIN, URINE AUTO NEGATIVE (NEGATIVE); RBC, URINE AUTO 0 /HPF (0-3); SPECIFIC GRAVITY URINE AUTO 1.009 (1.002-1.035); SQUAMOUS EPITHELIAL CELL UR AU 9 /HPF (0-6); UROBILINOGEN, URINE AUTO 0.2 mg/dL (0.0-2.0); WBC, URINE AUTO 0 /HPF (0-3)
[2023-04-10 13:05] LABS: BASO # 0.1 10^3/uL (0.0-0.2); BASO % 0.7 % (0.0-1.0); EOS # 0.2 10^3/uL (0.0-0.5); EOS % 3.3 % (0.0-3.0); HEMATOCRIT 43.3 % (36.0-47.0); HEMOGLOBIN 13.9 g/dl (12.0-15.5); LYMPH # 2.7 10^3/uL (1.5-5.0); LYMPH % 38.9 % (24.0-44.0); MEAN CORPUSCULAR HEMOGLOBIN 28.4 pg (27.0-33.0); MEAN CORPUSCULAR HGB CONC 32.1 g/dl (32.0-36.5); MEAN CORPUSCULAR VOLUME 88.5 fl (80.0-96.0); MONO # 0.5 10^3/uL (0.0-0.8); MONO % 7.7 % (2.0-8.0); NEUTROPHILS # 3.4 10^3/uL (1.5-8.5); NEUTROPHILS % 49.3 % (36.0-66.0); PLATELET COUNT, AUTOMATED 242 10^3/uL (150-450); RED BLOOD COUNT 4.89 10^6/uL (4.00-5.40)
[2023-04-10 13:33] LABS: BLOOD UREA NITROGEN 12 MG/DL (9-23); CALCIUM LEVEL 9.1 MG/DL (8.5-10.1); CARBON DIOXIDE LEVEL 26 MMOL/L (20-31); CHLORIDE LEVEL 103 MMOL/L (98-107); CREATININE FOR GFR 0.63 MG/DL (0.55-1.30); GLOMERULAR FILTRATION RATE > 60.0 (>60); GLUCOSE, FASTING 88 MG/DL (60-100); POTASSIUM SERUM 3.9 MMOL/L (3.5-5.1); SODIUM LEVEL 138 MMOL/L (136-145)
[2023-04-10 14:25] VITALS: BP 129/74; TEMP 98.3; O2SAT 98
[2023-04-10 16:05] LABS: GC DNA AMPLIFICATION NEGATIVE (NEGATIVE)
[2023-04-10] MEDS ORDERED: FLUC150T9 PO (18:21)
== END 2023-04-10 14:28 | disposition home or self-care (01) ==
LOC: M ED 09:52
DX: N83.291 Other ovarian cyst, right side (principal); F41.9 Anxiety disorder, unspecified; G43.909 Migraine, unspecified, not intractable, without status migrainosus; Z79.2 Long term (current) use of antibiotics

== ENCOUNTER → 2023-08-25 | Outpatient (REF) | payer OTHER ==
[~2023-08-25] MED LIST changes: +FLUC150T9 PO
[2023-08-25 21:43] LABS: APPEARANCE, URINE HAZY (CLEAR); BACTERIA, URINE AUTO 1+ (NEGATIVE); BILIRUBIN, URINE AUTO NEGATIVE (NEGATIVE); BLOOD, URINE BLOOD NEGATIVE (NEGATIVE); COLOR, URINE YELLOW (YELLOW); GLUCOSE, URINE (UA) AUTO NEGATIVE (NEGATIVE); KETONE, URINE AUTO NEGATIVE (NEGATIVE); LEUKOCYTE ESTERASE, URINE AUTO NEGATIVE (NEGATIVE); MUCUS, URINE SMALL (NEGATIVE); NITRITE, URINE AUTO NEGATIVE (NEGATIVE); PROTEIN, URINE AUTO NEGATIVE (NEGATIVE); RBC, URINE AUTO 0 /HPF (0-3); SPECIFIC GRAVITY URINE AUTO 1.011 (1.002-1.035); SQUAMOUS EPITHELIAL CELL UR AU 3 /HPF (0-6); UROBILINOGEN, URINE AUTO 0.2 mg/dL (0.0-2.0); WBC, URINE AUTO 1 /HPF (0-3)
[2023-08-25 22:37] LABS: Trichomonas vaginalis (AMP) NOT DETECTED (NEGATIVE)
[2023-08-25 23:02] LABS: GC DNA AMPLIFICATION NEGATIVE (NEGATIVE)
== END ==
LOC: M LAB REF 21:15
PROVIDERS: ATTEND Physician Assistant
DX: N39.0 Urinary tract infection, site not specified (principal)

== ENCOUNTER → 2023-10-01 | Outpatient (CLI) | payer OTHER ==
[2023-10-01 19:53] LABS: APPEARANCE, URINE CLEAR (CLEAR); BACTERIA, URINE AUTO NEGATIVE (NEGATIVE); BILIRUBIN, URINE AUTO NEGATIVE (NEGATIVE); BLOOD, URINE BLOOD 1+ (NEGATIVE); COLOR, URINE YELLOW (YELLOW); GLUCOSE, URINE (UA) AUTO NEGATIVE (NEGATIVE); KETONE, URINE AUTO NEGATIVE (NEGATIVE); LEUKOCYTE ESTERASE, URINE AUTO NEGATIVE (NEGATIVE); MUCUS, URINE SMALL (NEGATIVE); NITRITE, URINE AUTO NEGATIVE (NEGATIVE); PROTEIN, URINE AUTO NEGATIVE (NEGATIVE); RBC, URINE AUTO 1 /HPF (0-3); SPECIFIC GRAVITY URINE AUTO 1.012 (1.002-1.035); SQUAMOUS EPITHELIAL CELL UR AU 0 /HPF (0-6); UROBILINOGEN, URINE AUTO 0.2 mg/dL (0.0-2.0); WBC, URINE AUTO 0 /HPF (0-3)
[2023-10-01 21:04] LABS: Trichomonas vaginalis (AMP) NOT DETECTED (NEGATIVE)
[2023-10-01 21:28] LABS: GC DNA AMPLIFICATION NEGATIVE (NEGATIVE)
== END ==
LOC: M LAB 09:35
PROVIDERS: ATTEND Physician Assistant Medical
DX: N39.0 Urinary tract infection, site not specified (principal)

== ENCOUNTER → 2024-01-22 | Outpatient (CLI) | payer OTHER ==
[2024-01-22 13:05] LABS: HEMATOCRIT 40.4 % (36.0-47.0); HEMOGLOBIN 13.6 g/dl (12.0-15.5); MEAN CORPUSCULAR HEMOGLOBIN 29.2 pg (27.0-33.0); MEAN CORPUSCULAR HGB CONC 33.7 g/dl (32.0-36.5); MEAN CORPUSCULAR VOLUME 86.7 fl (80.0-96.0); PLATELET COUNT, AUTOMATED 229 10^3/uL (150-450); RED BLOOD COUNT 4.66 10^6/uL (4.00-5.40)
[2024-01-22 13:38] LABS: HIV 1&2 SCREEN NEGATIVE (NEGATIVE)
[2024-01-22 13:47] LABS: HEPATITIS C VIRUS ABY INDEX < 0.02 INDEX (<0.8)
[2024-01-22 14:32] LABS: GC DNA AMPLIFICATION NEGATIVE (NEGATIVE)
== END ==
LOC: M PLALAB 09:31
PROVIDERS: ATTEND Obstetrics & Gynecology
DX: O34.211 Maternal care for low transverse scar from previous cesarean delivery (principal); Z3A.00 Weeks of gestation of pregnancy not specified

== ENCOUNTER → 2024-01-29 | Outpatient (CLI) | payer OTHER | LOC: M PLALAB 13:38 | PROVIDERS: ATTEND Specialist | DX: Z34.81 Encounter for supervision of other normal pregnancy, first trimester (principal); Z3A.00 Weeks of gestation of pregnancy not specified ==

== ENCOUNTER 2024-02-16 14:56 | Emergency (ER) | payer OTHER ==
[~2024-02-16] VITALS: Ht 170.2 cm; Wt 79.5 kg
[2024-02-16 14:57] VITALS: BP 132/76; TEMP 98.8; O2SAT 95
[2024-02-16 15:41] LABS: BASO % 0.3 % (0.0-1.0); HEMATOCRIT 35.9 % (36.0-47.0); HEMOGLOBIN 12.1 g/dl (12.0-15.5); LYMPH # 0.4 10^3/uL (1.5-5.0); LYMPH % 12.3 % (24.0-44.0); MEAN CORPUSCULAR HEMOGLOBIN 28.7 pg (27.0-33.0); MEAN CORPUSCULAR HGB CONC 33.7 g/dl (32.0-36.5); MEAN CORPUSCULAR VOLUME 85.3 fl (80.0-96.0); MONO # 0.4 10^3/uL (0.0-0.8); MONO % 14.4 % (2.0-8.0); NEUTROPHILS # 2.1 10^3/uL (1.5-8.5); NEUTROPHILS % 71.7 % (36.0-66.0); PLATELET COUNT, AUTOMATED 171 10^3/uL (150-450); RED BLOOD COUNT 4.21 10^6/uL (4.00-5.40); WHITE BLOOD COUNT 2.9 10^3/uL (4.0-10.0)
[2024-02-16 16:28] LABS: BLOOD UREA NITROGEN < 5 MG/DL (9-23); CALCIUM LEVEL 8.8 MG/DL (8.5-10.1); CARBON DIOXIDE LEVEL 22 MMOL/L (20-31); CHLORIDE LEVEL 107 MMOL/L (98-107); CREATININE FOR GFR 0.52 MG/DL (0.55-1.30); GLOMERULAR FILTRATION RATE > 60.0 (>60); GLUCOSE, FASTING 110 MG/DL (60-100); HCG, SERUM QUANTITATIVE 60227.6 MIU/ML (<4.2); POTASSIUM SERUM 3.2 MMOL/L (3.5-5.1); SODIUM LEVEL 136 MMOL/L (136-145)
[2024-02-16] MEDS ORDERED: NS 1,000 ML IV ONE (17:25)
[2024-02-16] MEDS ORDERED: ACETAMINOPHEN *IV* 1,000 MG in IV 1 EA IV ONE (17:25)
== END 2024-02-16 17:57 | disposition left against medical advice (07) ==
LOC: M ED 15:46
DX: O98.512 Other viral diseases complicating pregnancy, second trimester (principal); U07.1 COVID-19; K57.92 Diverticulitis of intestine, part unspecified, without perforation or abscess without bleeding; J45.909 Unspecified asthma, uncomplicated; G43.909 Migraine, unspecified, not intractable, without status migrainosus; Z3A.14 14 weeks gestation of pregnancy; Z53.9 Procedure and treatment not carried out, unspecified reason

== ENCOUNTER → 2024-02-16 | Outpatient (REF) | payer OTHER | LOC: M LAB REF 12:12 | PROVIDERS: ATTEND Physician Assistant | DX: B34.9 Viral infection, unspecified (principal) ==

== ENCOUNTER → 2024-04-09 | Outpatient (CLI) | payer OTHER | LOC: M RAD 13:54 | PROVIDERS: ATTEND Advanced Practice Midwife | DX: Z34.82 Encounter for supervision of other normal pregnancy, second trimester (principal); Z3A.22 22 weeks gestation of pregnancy ==

== ENCOUNTER → 2024-05-06 | Outpatient (CLI) | payer OTHER ==
[2024-05-06 12:58] LABS: GLUCOSE CHALLENGE TEST 1 HOUR 81 MG/DL (LESS THAN 140)
[2024-05-06 13:04] LABS: HEMOGLOBIN 12.6 g/dl (12.0-15.5); MEAN CORPUSCULAR HEMOGLOBIN 29.4 pg (27.0-33.0); MEAN CORPUSCULAR HGB CONC 33.2 g/dl (32.0-36.5); MEAN CORPUSCULAR VOLUME 88.6 fl (80.0-96.0); PLATELET COUNT, AUTOMATED 212 10^3/uL (150-450); RED BLOOD COUNT 4.29 10^6/uL (4.00-5.40); WHITE BLOOD COUNT 6.7 10^3/uL (4.0-10.0)
[2024-05-06 13:33] LABS: HIV 1&2 SCREEN NEGATIVE (NEGATIVE)
[2024-05-06 13:41] LABS: HEPATITIS C VIRUS ABY INDEX 0.18 INDEX (<0.8)
[2024-05-06 14:33] LABS: GC DNA AMPLIFICATION NEGATIVE (NEGATIVE)
== END ==
LOC: M PLALAB 09:17
PROVIDERS: ATTEND Obstetrics & Gynecology
DX: Z34.92 Encounter for supervision of normal pregnancy, unspecified, second trimester (principal); Z3A.00 Weeks of gestation of pregnancy not specified

== ENCOUNTER → 2024-06-07 | Outpatient (CLI) | payer OTHER | LOC: M WHC 10:50 | PROVIDERS: ATTEND Obstetrics & Gynecology | DX: Z34.82 Encounter for supervision of other normal pregnancy, second trimester (principal) ==

== ENCOUNTER 2024-07-12 04:17 | Outpatient (CLI) | payer OTHER ==
[~2024-07-12] VITALS: Ht 170.2 cm; Wt 87.6 kg
[2024-07-12 04:38] VITALS: BP 122/69
[2024-07-12] MEDS ORDERED: HOME MED LIST COMPLETE! XX SCH (04:55)
[2024-07-12] MEDS: LR 1,000 ML IV ONE (05:22)
[2024-07-12 05:29] LABS: HEMATOCRIT 36.1 % (36.0-47.0); HEMOGLOBIN 12.1 g/dl (12.0-15.5); MEAN CORPUSCULAR HEMOGLOBIN 27.5 pg (27.0-33.0); MEAN CORPUSCULAR HGB CONC 33.5 g/dl (32.0-36.5); PLATELET COUNT, AUTOMATED 223 10^3/uL (150-450); WHITE BLOOD COUNT 10.4 10^3/uL (4.0-10.0)
[2024-07-12 05:55] LABS: ALBUMIN 2.7 G/DL (3.2-5.2); ALKALINE PHOSPHATASE 130 U/L (35-104); ALT/SGPT 11 U/L (7.0-40); AST/SGOT 23 U/L (<34); BILIRUBIN,TOTAL 0.5 MG/DL (0.3-1.2); BLOOD UREA NITROGEN 11 MG/DL (9-23); CALCIUM LEVEL 8.6 MG/DL (8.5-10.1); CARBON DIOXIDE LEVEL 22 MMOL/L (20-31); CHLORIDE LEVEL 104 MMOL/L (98-107); CREATININE FOR GFR 0.44 MG/DL (0.55-1.30); GLOMERULAR FILTRATION RATE > 60.0 (>60); GLUCOSE, FASTING 79 MG/DL (60-100); SODIUM LEVEL 138 MMOL/L (136-145); TOTAL PROTEIN 6.3 G/DL (5.7-8.2)
[2024-07-12] MEDS: FAMOTIDINE 20 MG TAB PO ONE (06:13)
[2024-07-12] MEDS ORDERED: PANT20TA6 PO (12:00)
== END 2024-07-12 07:20 | disposition home or self-care (01) ==
LOC: M LDO 04:17
PROVIDERS: ATTEND Specialist
DX: O99.613 Diseases of the digestive system complicating pregnancy, third trimester (principal); O34.219 Maternal care for unspecified type scar from previous cesarean delivery; K21.9 Gastro-esophageal reflux disease without esophagitis; Z3A.35 35 weeks gestation of pregnancy; Z88.8 Allergy status to other drugs, medicaments and biological substances
CPT/HCPCS: 36415; 59025; 80053; 85027; 96360; G0463

== ENCOUNTER → 2024-07-18 | Outpatient (REF) | payer OTHER ==
[~2024-07-18] MED LIST changes: +PANT20TA6 PO
== END ==
LOC: M SFHCWAGY 17:14
PROVIDERS: ATTEND Specialist
DX: O09.293 Supervision of pregnancy with other poor reproductive or obstetric history, third trimester (principal); O34.219 Maternal care for unspecified type scar from previous cesarean delivery; Z3A.36 36 weeks gestation of pregnancy; Z86.19 Personal history of other infectious and parasitic diseases; Z88.8 Allergy status to other drugs, medicaments and biological substances; Z87.891 Personal history of nicotine dependence

== ENCOUNTER 2024-08-05 07:30 | Inpatient (IN) | payer OTHER ==
[~2024-08-05] VITALS: Ht 170.2 cm; Wt 89.8 kg
[2024-08-06] VITALS (8 sets, daily range): BP systolic 102–139; BP diastolic 59–84; TEMP 97; O2SAT 97–100
[2024-08-06] MEDS: LACTATED RINGER'S 1000 ML IV STA (05:52)
[2024-08-06 06:11] LABS: HEMATOCRIT 36.8 % (36.0-47.0); HEMOGLOBIN 11.9 g/dl (12.0-15.5); MEAN CORPUSCULAR HEMOGLOBIN 26.2 pg (27.0-33.0); MEAN CORPUSCULAR HGB CONC 32.3 g/dl (32.0-36.5); MEAN CORPUSCULAR VOLUME 80.9 fl (80.0-96.0); PLATELET COUNT, AUTOMATED 258 10^3/uL (150-450); RED BLOOD COUNT 4.55 10^6/uL (4.00-5.40)
[2024-08-06] MEDS: LR 1,000 ML IV SCH (06:40)
[2024-08-06 07:11] LABS: HIV 1&2 SCREEN NEGATIVE (NEGATIVE)
[2024-08-06] MEDS: BICITRA 30ML SOLN UDC PO ONE (07:24)
[2024-08-06] MEDS: ceFAZolin SODIUM 2 GM in DEXTROSE 5% (D5W) ADV/MINI-BAG 50 ML IV ONE (07:24)
[2024-08-06] MEDS ORDERED: KETOROLAC 60MG 2ML VIAL As Ordered ONE (08:23)
[2024-08-06] MEDS ORDERED: PHENYLephrine 500MCG 5ML (100MCG/ML) SYRINGE As Ordered ONE (08:23)
[2024-08-06] MEDS ORDERED: OXYTOCIN 30UNITS IN 0.9% NaCl 500ML IV BAG As Ordered ONE (08:23)
[2024-08-06] MEDS ORDERED: ePHEDrine SULFATE 25 MG/5 ML(5MG/ML) SYRINGE As Ordered ONE (08:23)
[2024-08-06] MEDS ORDERED: ONDANSETRON 4MG 2ML VIAL As Ordered ONE (08:23)
[2024-08-06] MEDS ORDERED: MORPHINE PRES-FREE INJ 10 MG/10 ML VIAL As Ordered ONE (08:23)
[2024-08-06] MEDS ORDERED: ACETAMINOPHEN 1000MG/100ML IV BAG As Ordered ONE (08:23)
[2024-08-06 08:44] LABS: CORD GAS ABE V -1.3; CORD GAS HCO3 V 21.4 MMOL/L; CORD GAS O2 SAT V 68.7 %; CORD GAS PCO2 V 30.9 mmHg; CORD GAS PH V 7.459 UNITS; CORD GAS PO2 V 24.8 mmHg; CORD GAS SBC V 22.7 MMOL/L; CORD GAS TCO2 V 22.4 MMOL/L
[2024-08-06 08:47] LABS: CORD GAS ABE A -1.6; CORD GAS HCO3 A 23.5 MMOL/L; CORD GAS O2 SAT A 29.4 %; CORD GAS PCO2 A 41.2 mmHg; CORD GAS PH A 7.374 UNITS; CORD GAS SBC A 21.5 MMOL/L; CORD GAS TCO2 A 24.8 MMOL/L
[2024-08-06] MEDS ORDERED: ONDANSETRON 4MG 2ML VIAL IV PRN ×2 (09:10→09:30)
[2024-08-06] MEDS ORDERED: ANUSOL HC CREAM 30GM TOP PRN (09:10)
[2024-08-06] MEDS ORDERED: METOCLOPRAMIDE INJ 10MG/2ML VIAL IV PRN ×2 (09:10→09:30)
[2024-08-06] MEDS ORDERED: MOM 30ML SUSPENSION UDC PO PRN (09:10)
[2024-08-06] MEDS ORDERED: RHOGAM 300MCG (1500IU) INJ IM SCH (09:10)
[2024-08-06] MEDS ORDERED: SIMETHICONE 80MG CHEW TAB PO PRN (09:10)
[2024-08-06] MEDS ORDERED: diphenhydrAMINE 50MG/ML VIAL IV PRN (09:30)
[2024-08-06] MEDS ORDERED: **NOTE PATIENT COMMENT** MISC XX SCH (09:30)
[2024-08-06] MEDS ORDERED: fentaNYL 100 MCG/2 ML INJECTION IV PRN (09:30)
[2024-08-06] MEDS ORDERED: oxyCODONE 5MG TAB PO PRN (09:30)
[2024-08-06] MEDS ORDERED: HYDROMORPHONE HCL 0.5 MG/ 0.5 ML SYRINGE IV PRN (09:30)
[2024-08-06] MEDS ORDERED: NALOXONE INJ 0.4MG/1ML VIAL IV PRN ×2 (09:30)
[2024-08-06] MEDS: SLF 3 ML SYR IV SCH (09:30)
[2024-08-06] MEDS ORDERED: MEPERIDINE 25 MG/ML 1ML VIAL As Ordered ONE (10:19)
[2024-08-06] MEDS: MEPERIDINE 25 MG/ML 1ML VIAL IV PRN (10:21)
[2024-08-06] MEDS ORDERED: PERCOCET 5MG/325MG TAB PO PRN (11:20)
[2024-08-06] MEDS: KETOROLAC 30 MG/ML 1ML VIAL IV SCH (15:01)
[2024-08-06] MEDS: DOCUSATE SODIUM 100MG CAPSULE PO SCH (20:43)
[2024-08-07 02:00] VITALS: BP 103/55; O2SAT 97
[2024-08-07 06:00] VITALS: BP 110/56; O2SAT 97
[2024-08-07 07:05] LABS: HEMATOCRIT 33.2 % (36.0-47.0); HEMOGLOBIN 10.3 g/dl (12.0-15.5); MEAN CORPUSCULAR HEMOGLOBIN 25.6 pg (27.0-33.0); MEAN CORPUSCULAR VOLUME 82.6 fl (80.0-96.0); PLATELET COUNT, AUTOMATED 206 10^3/uL (150-450); RED BLOOD COUNT 4.02 10^6/uL (4.00-5.40); WHITE BLOOD COUNT 8.6 10^3/uL (4.0-10.0)
[2024-08-07] MEDS ORDERED: OXYC1TAB23 PO (07:48)
[2024-08-07] MEDS ORDERED: IBUP80TA PO (07:48)
[2024-08-07] MEDS ORDERED: COLA100C5 PO (07:48)
[2024-08-07] MEDS: PRENATAL VITAMINS CHEWABLE TABLET PO SCH (08:17)
[2024-08-07] MEDS: PERCOCET 5MG/325MG TAB PO PRN (08:59)
[2024-08-07] MEDS: MEASLES,MUMPS,RUBELLA VACCINE INJ (MMR-II) SC.IMMUN ONE (09:00)
[2024-08-07 10:00] VITALS: BP 120/61; O2SAT 98
[2024-08-07] MEDS: IBUPROFEN 800 MG TAB PO SCH (10:45)
[2024-08-07 14:00] VITALS: BP 121/64; O2SAT 100
[2024-08-07 18:00] VITALS: BP 120/76; O2SAT 98
[2024-08-07 22:05] VITALS: BP 147/70; O2SAT 97
[2024-08-08 02:00] VITALS: BP 116/67; O2SAT 98
[2024-08-08 06:00] VITALS: BP 121/65; O2SAT 98
== END 2024-08-08 13:45 | disposition home or self-care (01) | DRG 540 ==
LOC: M LDI 08-06 05:05 → M OBS 08-06 10:40
PROVIDERS: ADMIT Specialist; ATTEND Specialist
PROC: 0UB70ZZ Excision of Bilateral Fallopian Tubes, Open Approach (ICD-10-PCS; 2024-08-06)
PROC: 10D00Z1 Extraction of Products of Conception, Low, Open Approach (ICD-10-PCS; principal; 2024-08-06 07:30)
DX: O34.211 Maternal care for low transverse scar from previous cesarean delivery (principal); Z37.0 Single live birth; Z3A.39 39 weeks gestation of pregnancy; Z30.2 Encounter for sterilization

== ENCOUNTER → 2024-10-04 | Outpatient (CLI) | payer OTHER ==
[~2024-10-04] MED LIST changes: +COLA100C5 PO; +OXYC1TAB23 PO
[2024-10-04 11:49] LABS: HEMATOCRIT 39.7 % (36.0-47.0); HEMOGLOBIN 12.5 g/dl (12.0-15.5); MEAN CORPUSCULAR HEMOGLOBIN 26.1 pg (27.0-33.0); MEAN CORPUSCULAR HGB CONC 31.5 g/dl (32.0-36.5); MEAN CORPUSCULAR VOLUME 82.9 fl (80.0-96.0); PLATELET COUNT, AUTOMATED 279 10^3/uL (150-450); RED BLOOD COUNT 4.79 10^6/uL (4.00-5.40); WHITE BLOOD COUNT 5.3 10^3/uL (4.0-10.0)
[2024-10-04 11:54] LABS: ALBUMIN 3.9 G/DL (3.2-5.2); ALKALINE PHOSPHATASE 78 U/L (35-104); ALT/SGPT 34 U/L (7.0-40); AST/SGOT 41 U/L (<34); BILIRUBIN,TOTAL 0.5 MG/DL (0.3-1.2); BLOOD UREA NITROGEN 7 MG/DL (9-23); CALCIUM LEVEL 9.4 MG/DL (8.5-10.1); CARBON DIOXIDE LEVEL 29 MMOL/L (20-31); CHLORIDE LEVEL 105 MMOL/L (98-107); CREATININE FOR GFR 0.79 MG/DL (0.55-1.30); GLOMERULAR FILTRATION RATE > 90.0 (>60); GLUCOSE, FASTING 95 MG/DL (60-100); POTASSIUM SERUM 4.4 MMOL/L (3.5-5.1); SODIUM LEVEL 139 MMOL/L (136-145); TOTAL PROTEIN 6.9 G/DL (5.7-8.2)
[2024-10-04 11:55] LABS: THYROID STIMULATING HORMONE 0.633 uIU/ML (0.55-4.78)
[2024-10-04 11:56] LABS: FREE T4 1.14 NG/DL (0.89-1.76)
== END ==
LOC: M PLALAB 08:55
PROVIDERS: ATTEND Specialist
DX: Z39.2 Encounter for routine postpartum follow-up (principal)

== ENCOUNTER → 2025-02-10 | Outpatient (REF) | payer OTHER ==
[2025-02-10 18:47] LABS: APPEARANCE, URINE CLEAR (CLEAR); BACTERIA, URINE AUTO 1+ (NEGATIVE); BILIRUBIN, URINE AUTO NEGATIVE (NEGATIVE); BLOOD, URINE BLOOD 1+ (NEGATIVE); GLUCOSE, URINE (UA) AUTO NEGATIVE (NEGATIVE); KETONE, URINE AUTO NEGATIVE (NEGATIVE); LEUKOCYTE ESTERASE, URINE AUTO TRACE (NEGATIVE); NITRITE, URINE AUTO NEGATIVE (NEGATIVE); PROTEIN, URINE AUTO NEGATIVE (NEGATIVE); RBC, URINE AUTO 5 /HPF (0-3); SPECIFIC GRAVITY URINE AUTO 1.003 (1.002-1.035); SQUAMOUS EPITHELIAL CELL UR AU 1 /HPF (0-6); UROBILINOGEN, URINE AUTO 0.2 mg/dL (0.0-2.0); WBC, URINE AUTO 5 /HPF (0-3)
== END ==
LOC: M LAB REF 17:33
PROVIDERS: ATTEND Physician Assistant
DX: N39.0 Urinary tract infection, site not specified (principal)

== ENCOUNTER → 2025-02-18 | Outpatient (REF) | payer OTHER ==
[2025-02-18 12:22] LABS: Trichomonas vaginalis (AMP) NOT DETECTED (NEGATIVE)
[2025-02-18 12:46] LABS: GC DNA AMPLIFICATION NEGATIVE (NEGATIVE)
== END ==
LOC: M PLALAB 08:39
PROVIDERS: ATTEND Physician Assistant
DX: R10.2 Pelvic and perineal pain (principal)

== ENCOUNTER → 2025-03-18 | Outpatient (REF) | payer OTHER | LOC: M PLALAB 16:01 | PROVIDERS: ATTEND Physician Assistant | DX: Z53.9 Procedure and treatment not carried out, unspecified reason (principal); N77.1 Vaginitis, vulvitis and vulvovaginitis in diseases classified elsewhere ==

== ENCOUNTER → 2025-03-21 | Outpatient (CLI) | payer OTHER | LOC: M WHC 12:52 | PROVIDERS: ATTEND Physician Assistant | DX: R10.20 Pelvic and perineal pain unspecified side (principal) ==

== ENCOUNTER 2025-04-07 02:44 | Emergency (ER) | payer OTHER ==
[~2025-04-07] VITALS: Ht 170.2 cm; Wt 77.2 kg
[2025-04-07 02:47] VITALS: BP 134/98; TEMP 97.1; O2SAT 98
== END 2025-04-07 04:53 | disposition left against medical advice (07) ==
LOC: M ED 02:44
DX: Z53.21 Procedure and treatment not carried out due to patient leaving prior to being seen by health care provider (principal)

== ENCOUNTER → 2025-04-28 | Outpatient (REF) | payer OTHER | LOC: M PLALAB 08:58 | PROVIDERS: ATTEND Obstetrics & Gynecology | DX: Z01.419 Encounter for gynecological examination (general) (routine) without abnormal findings (principal) ==